=== PATIENT | female | born 1995 | race Caucasian/White ===

== ENCOUNTER 2021-12-25 13:30 | Emergency (ER) | payer MEDICAID ==
[~2021-12-25] VITALS: Ht 167.6 cm; Wt 49.9 kg
[2021-12-25 14:26] LABS: HEMATOCRIT 39.3 % (31.2-41.9); MEAN CORPUSCULAR HEMOGLOBIN 28.2 uug (24.7-32.8); MEAN CORPUSCULAR VOLUME 83.4 fL (75.5-95.3); PLATELET COUNT (AUTO) 207 K/uL (179-408)
[2021-12-25 14:30] LABS: CREATININE 0.8 mg/dL (0.6-1.3); POTASSIUM 4.7 mmol/L (3.5-5.1)
[2021-12-25] MEDS ORDERED: IBUP-1953 PO (15:03)
--- NOTE | 2021-12-25 15:40 | NUR ---
Patient discharged to home in stable condition. Written and verbal after care instructions given. Patient verbalizes understanding of instructions. Stressed follow up or return to ER for worsening s/s.
[2021-12-25 15:41] VITALS: BP 139/82
== END 2021-12-25 15:41 | disposition home or self-care (01) ==
LOC: ER 13:30
DX: R22.43 Localized swelling, mass and lump, lower limb, bilateral (principal)
CPT/HCPCS: 36415; 85025; A4663